=== PATIENT | female | born 1995 | race Caucasian/White ===

== ENCOUNTER 2024-08-15 15:36 | Observation (INO) | payer BC ==
[~2024-08-15] VITALS: Ht 157.5 cm; Wt 60.8 kg
[2024-08-15 16:18] LABS: BASOPHILS % 0.4 % (0.0-1.0); EOSINOPHILS # (AUTO) 0.1 (0.0-0.4); EOSINOPHILS % 1.3 % (0.0-6.0); HEMATOCRIT 25.4 % (34.2-44.1); HEMOGLOBIN 7.1 g/dL (12.0-16.0); LYMPHOCYTES # (AUTO) 1.5 (1.0-3.2); LYMPHOCYTES % 32.7 % (18.0-39.1); MEAN CORPUSCULAR HEMOGLOBIN 17.1 pg (28-32); MEAN CORPUSCULAR VOLUME 61.2 fL (81-99); MONOCYTES # (AUTO) 0.3 (0.2-0.8); NEUTROPHILS # (AUTO) 2.6 (2.1-6.9); NEUTROPHILS % 58.6 % (38.7-80.0); PLATELET COUNT 262 x10e3/uL (140-360); RED BLOOD COUNT 4.15 x10e6/uL (3.6-5.1); RED CELL DISTRIBUTION WIDTH 19.2 % (11.7-14.4); WHITE BLOOD COUNT 4.46 x10e3/uL (4.8-10.8)
[2024-08-15] MEDS ORDERED: ONDANSETRON HCL INJ 2MG/ML 2ML 2 MG/ML VIAL IV PRN (18:15)
[2024-08-15] MEDS ORDERED: Morphine 2mg Syringe 2 MG/ML SYR IV PRN (18:15)
[2024-08-15 19:00] VITALS: PULSE 85; RESP 16; TEMP 98.6
[2024-08-15 20:25] VITALS: BP 111/59; PULSE 72; RESP 20; TEMP 98.2; O2SAT 100
[2024-08-15] MEDS ORDERED: ACETAMINOPHEN 325 MG TAB PO PRN (23:00)
[2024-08-15 23:40] VITALS: BP 102/59; PULSE 66; RESP 18; TEMP 98.3; O2SAT 100
[2024-08-15 23:53] VITALS: BP 136/85; PULSE 98; RESP 18; TEMP 98.2; O2SAT 98
[2024-08-15 23:55] VITALS: BP 100/72; PULSE 74; RESP 18; TEMP 98.1; O2SAT 100
[2024-08-16 00:03] VITALS: BP 136/85; PULSE 98; RESP 18; TEMP 98.2; O2SAT 98
[2024-08-16 00:10] VITALS: BP 104/63; PULSE 73; RESP 18; TEMP 98.3; O2SAT 100
[2024-08-16 00:40] VITALS: BP 103/67; PULSE 70; RESP 18; TEMP 98.5; O2SAT 100
[2024-08-16] MEDS ORDERED: MELOXICAM7.5 MG PO (01:50)
[2024-08-16] MEDS ORDERED: TIZANIDINE HCL4 MG PO (01:50)
[2024-08-16 03:18] LABS: THYROID STIMULATING HORMONE 1.111 uIU/mL (0.350-4.940)
[2024-08-16 04:00] VITALS: BP 102/59; PULSE 73; RESP 16; TEMP 98.9; O2SAT 100
[2024-08-16 05:24] LABS: BASOPHILS % 0.9 % (0.0-1.0); EOSINOPHILS # (AUTO) 0.1 (0.0-0.4); EOSINOPHILS % 2.4 % (0.0-6.0); HEMATOCRIT 27.4 % (34.2-44.1); HEMOGLOBIN 8.1 g/dL (12.0-16.0); LYMPHOCYTES # (AUTO) 1.7 (1.0-3.2); LYMPHOCYTES % 36.5 % (18.0-39.1); MEAN CORPUSCULAR HEMOGLOBIN 19.2 pg (28-32); MEAN CORPUSCULAR HGB CONC 29.6 g/dL (31-35); MEAN CORPUSCULAR VOLUME 64.9 fL (81-99); MONOCYTES # (AUTO) 0.4 (0.2-0.8); MONOCYTES % 7.9 % (4.4-11.3); NEUTROPHILS # (AUTO) 2.4 (2.1-6.9); NEUTROPHILS % 52.1 % (38.7-80.0); PLATELET COUNT 245 x10e3/uL (140-360); RED BLOOD COUNT 4.22 x10e6/uL (3.6-5.1); RED CELL DISTRIBUTION WIDTH 22.4 % (11.7-14.4); WHITE BLOOD COUNT 4.58 x10e3/uL (4.8-10.8)
[2024-08-16 06:00] LABS: ALBUMIN 3.6 g/dL (3.5-5.0); ALBUMIN/GLOBULIN RATIO 1.4 (0.8-2.0); ANION GAP 11.6 mmol/L (8-16); BILIRUBIN,TOTAL 0.9 mg/dL (0.2-1.2); CALCIUM 8.4 mg/dL (8.4-10.2); CREATININE, SERUM 0.73 mg/dL (0.57-1.11); POTASSIUM 3.6 mmol/L (3.5-5.1); TOTAL PROTEIN 6.2 g/dL (6.5-8.1)
[2024-08-16 07:48] LABS: EOSINOPHILS % (MANUAL) 1 % (0-7); LYMPHOCYTES % (MANUAL) 44 % (19-48); MONOCYTES % (MANUAL) 8 % (3.4-9.0); NEUTROPHILS % (MANUAL) 47 % (40-74)
[2024-08-16 07:49] LABS: HYPOCHROMASIA MODERATE; MICROCYTOSIS MODERATE; PLATELET ESTIMATE ADEQUATE; PLATELET MORPHOLOGY COMMENT NORMAL; RBC MORPHOLOGY COMMENT ABNORMAL
[2024-08-16 08:34] VITALS: BP 105/50; PULSE 61; RESP 18; TEMP 98; O2SAT 99
[2024-08-16] MEDS: SODIUM CHLORIDE 0.9% 250ML 250 ML IV ONE (09:00)
[2024-08-16] MEDS ORDERED: ONDANSETRON HCL 4 MG ORAL DISINTEGRATING TAB PO PRN (11:45)
== END 2024-08-16 11:45 | disposition home or self-care (01) ==
LOC: ER 15:42 → ERHOLD 18:06 → MED/SURG 20:20 → MED/SURG2 20:24
PROVIDERS: ADMIT Internal Medicine; ATTEND Internal Medicine
DX: D50.0 Iron deficiency anemia secondary to blood loss (chronic) (principal); N92.0 Excessive and frequent menstruation with regular cycle
CPT/HCPCS: 36415 ×2; 36430 ×2; 76856; 80053; 82607; 82746; 83540; 84443; 84466; 85025 ×2; 86850; 86900; 86920; 99284; G0378 ×2; P9016 ×2